=== PATIENT | female | born 1960 | race Caucasian/White ===

== ENCOUNTER 2016-12-26 01:21 | Emergency (ER) | payer BC ==
[~2016-12-26] VITALS: Ht 165.1 cm; Wt 68.2 kg
[~2016-12-26 01:21] MED LIST: ALBUTEROL0.09 MG/A1 IH; ALPRAZOLAM; CYMBALTA; EFFEXOR; FOLIC ACID0.4 MG PO; KEPPRA PO; MEDROL 4MG DOSPA4 MG PO; NORCO 325 MG-51 TAB PO; PRILOSEC10 MG PO; PROBIOTIC FORMU1 CAP PO; RISPERDAL 0.5M0.5 MG PO; THIAMINE HCL PO; VITAMIN D1000 IU PO; XANAX0.5 MG PO; ZOLOFT100 MG PO; [UNRECOGNIZED DRUG - REMARK]
[2016-12-26 01:26] VITALS: TEMP 99.3
[2016-12-26] MEDS ORDERED: ZOLOFT 100MG100 MG PO (01:32)
[2016-12-26] MEDS ORDERED: NEURONTIN300 MG/CAP PO (01:33)
[2016-12-26] MEDS ORDERED: XANAX 1MG1 MG PO (01:34)
[2016-12-26] MEDS ORDERED: LIORESAL20 MG PO (01:34)
[2016-12-26] MEDS ORDERED: TEGRETOL 2200 MG/TA1 PO (04:14)
[2016-12-26] MEDS ORDERED: NORCO 325 MG-51 TAB PO (04:14)
[2016-12-26 07:35] VITALS: BP 135/85; PULSE 63
== END 2016-12-26 07:36 | disposition other institution (70) ==
LOC: COL.ER 01:21
DX: G50.0 Trigeminal neuralgia (principal)
CPT/HCPCS: J1170; J1885

== ENCOUNTER → 2019-05-10 | Outpatient (CLI) | payer BC, MEDICAID ==
[~2019-05-10] MED LIST changes: +EFFEXOR 3737.5 MG/TA PO; +LIORESAL20 MG PO; +NEURONTIN300 MG/CAP PO; +TEGRETOL 2200 MG/TA1 PO; +XANAX 1MG1 MG PO; +ZOLOFT 100MG100 MG PO
== END ==
LOC: MC.RAD 13:59
DX: N60.02 Solitary cyst of left breast (principal)
CPT/HCPCS: G0279

== ENCOUNTER → 2019-11-14 | Outpatient (CLI) | payer BC, MEDICAID | LOC: MC.RAD 11-09 13:00 | DX: N60.02 Solitary cyst of left breast (principal) ==

== ENCOUNTER → 2020-05-18 | Outpatient (CLI) | payer BC, MEDICAID | LOC: MC.RAD 13:15 | DX: Z12.31 Encounter for screening mammogram for malignant neoplasm of breast (principal) ==

== ENCOUNTER 2021-04-28 00:39 | Emergency (ER) | payer BC, MEDICAID ==
[~2021-04-28] VITALS: Ht 165.1 cm; Wt 56.7 kg
[2021-04-28 00:52] VITALS: TEMP 98.7
[2021-04-28] MEDS ORDERED: DOXYCYCLINE 10100 MG PO (01:18)
[2021-04-28] MEDS ORDERED: CLEOCIN HCL300 MG PO (01:18)
[2021-04-28 02:10] VITALS: BP 130/99; PULSE 79
== END 2021-04-28 02:10 | disposition home or self-care (01) ==
LOC: COL.ER 00:39
DX: S61.233A Puncture wound without foreign body of left middle finger without damage to nail, initial encounter (principal); J45.909 Unspecified asthma, uncomplicated; Z20.3 Contact with and (suspected) exposure to rabies; Z79.899 Other long term (current) drug therapy; Z23 Encounter for immunization; W55.81XA Bitten by other mammals, initial encounter

== ENCOUNTER 2021-05-21 14:55 | Emergency (ER) | payer BC, MEDICAID ==
[~2021-05-21] VITALS: Ht 165.1 cm; Wt 56.8 kg
[~2021-05-21 14:55] MED LIST changes: +CLEOCIN HCL300 MG PO; +DOXYCYCLINE 10100 MG PO
[2021-05-21 15:31] VITALS: TEMP 99
[2021-05-21] MEDS ORDERED: ZOFRAN ODT4 MG PO (16:37)
[2021-05-21 16:46] VITALS: BP 190/103; PULSE 84
== END 2021-05-21 16:54 | disposition home or self-care (01) ==
LOC: COL.ER 14:55
DX: S06.0X0A Concussion without loss of consciousness, initial encounter (principal); W01.198A Fall on same level from slipping, tripping and stumbling with subsequent striking against other object, initial encounter
CPT/HCPCS: J2405; J7120

== ENCOUNTER 2023-02-26 16:17 | Emergency (ER) | payer BC ==
[~2023-02-26] VITALS: Ht 165.1 cm; Wt 61.4 kg
[~2023-02-26 16:17] MED LIST changes: +ZOFRAN ODT4 MG PO
[2023-02-26 16:29] VITALS: TEMP 97.6
[2023-02-26 17:09] LABS: COLLECTION METHOD CLEAN CATCH
[2023-02-26 17:15] LABS: BASO % 0.6 % (0.0-2.0); EOS # 0.1 K/mm3 (0.0-0.7); GRAN # 3.7 K/mm3 (1.4-6.5); HEMATOCRIT 37.6 % (37.0-47.0); HEMOGLOBIN 13.3 g/dl (12.5-16.0); LYMPH # 2.4 K/mm3 (1.2-3.4); LYMPH % 35.3 % (20.0-51.0); MEAN CELL VOLUME 97 fl (80.0-100.0); MEAN CORPUSCULAR HEMOGLOBIN 34 pg (27-31); MEAN CORPUSCULAR HGB CONC 35 g/dl (33.0-37.0); MEAN PLATELET VOLUME 10.2 fl (7.4-10.4); MONO # 0.6 K/mm3 (0.1-0.6); MONO % 8.8 % (1.7-9.3); PLATELET COUNT 103 K/mm3 (130-400); RED BLOOD COUNT 3.89 M/mm3 (4.10-5.30); REDCELL DISTRIBUTION WIDTH-CV 11.6 % (11.5-14.5)
[2023-02-26 17:23] LABS: URINE APPEARANCE Clear (CLEAR/HAZY); URINE COLOR Yellow (YELLOW)
[2023-02-26 17:24] LABS: PH 5.5 (5.0-8.5); URINE BACTERIA Occasional /hpf (NONE SEEN); URINE BLOOD Negative (NEGATIVE); URINE GLUCOSE Negative (NEGATIVE); URINE KETONE Negative (NEGATIVE); URINE NITRATE Negative (NEGATIVE); URINE PROTEIN(semi-quant) Negative (NEGATIVE); URINE RBC None Seen /hpf (0-2); URINE UROBILINOGEN 0.2 E.U/dL (0.2-1.0)
[2023-02-26 17:33] LABS: TRICYCLIC ANTIDEPRESS URINE NEGATIVE
[2023-02-26 17:33] LABS: ALANINE AMINOTRANSFERASE 54 U/L (0-55); ALBUMIN 4.4 gm/dL (3.4-4.8); ALKALINE PHOSPHATASE 101 U/L (40-150); ANION GAP 19 mmol/L (7-16); AST,SGOT 135 U/L (5-34); BILIRUBIN,TOTAL 0.9 mg/dL (0.2-1.2); BLOOD UREA NITROGEN 6 mg/dL (10-20); CALCIUM 9.1 mg/dL (8.4-10.2); CARBON DIOXIDE 20 mmol/L (23-31); CHLORIDE 93 mmol/L (98-107); CREATININE, serum 0.67 mg/dL (0.57-1.11); GLUCOSE 83 mg/dL (70-99); POTASSIUM 3.2 mmol/L (3.5-4.5); SODIUM 132 mmol/L (136-145); TOTAL PROTEIN 8.3 gm/dL (6.2-8.1)
[2023-02-26 17:34] LABS: ACETAMINOPHEN < 1.0 ug/mL (10-30); SALICYLATE < 5.0 mg/dL (15.0-30.0)
[2023-02-26 17:35] LABS: ALCOHOL(ethanol),MEDICAL 351 mg/dL (0-10)
[2023-02-27 10:38] VITALS: BP 166/98; PULSE 88
== END 2023-02-27 10:41 | disposition home or self-care (01) ==
LOC: COL.ER 16:17
PROVIDERS: Nurse Practitioner
DX: F10.129 Alcohol abuse with intoxication, unspecified (principal); R45.851 Suicidal ideations; Y90.8 Blood alcohol level of 240 mg/100 ml or more
CPT/HCPCS: J7030

== ENCOUNTER → 2023-10-30 | Outpatient (CLI) | payer BC ==
[~2023-10-30] MED LIST changes: +Gadoterate 15 ML VIAL IV ONE
== END ==
LOC: COL.RAD 15:21
DX: R42 Dizziness and giddiness (principal); R20.2 Paresthesia of skin
CPT/HCPCS: A9575